=== PATIENT | male | born 1990 | race Two or more races ===

== ENCOUNTER → 2025-11-12 | Emergency (ER) | payer OTHER ==
[~2025-11-12] VITALS: Ht 172.7 cm; Wt 90.7 kg
[~2025-11-12] MED LIST: 0.9 % SODIUM CHLORIDE 1,000 ML IV STA; ABILIFY2 MG; ADDERALL 15 MG15 MG; CLONAZEPAM1 M1; FAMOTIDINE/PF 20 MG/2 ML VIAL IV STA; FAMOTIDINE/PF 20 MG/2 ML VIAL ONE; SERTRALINE20 MG/1 ML; TRICOR48 MG
[2025-11-12 19:29] LABS: BASO % 0.3 % (0.1-1.2); EOS # 0.02 (0.04-0.54); EOS % 0.2 % (0.7-7.0); LYMPH # 1.19 (1.18-3.74); LYMPH % 11.7 % (19.3-53.1); MEAN PLATELET VOLUME 8.60 fl (9.4-12.4); MONO # 1.03 (0.24-0.82); MONO % 10.1 % (4.7-12.5); NEUT # 7.83 (1.56-6.13); NEUT % 77.1 % (34.0-71.1); RED CELL DISTRIBUTION WIDTH 15.3 % (11.6-14.4)
[2025-11-12 20:26] LABS: INR 1.04
[2025-11-12 20:31] LABS: ALT/SGPT 72.0 U/L (12-78); AST/SGOT 55.0 U/L (15-37); BILIRUBIN TOTAL 0.5 mg/dL (0.3-1.2); BUN CREA RATIO 13.0 (7.0-25.0); CREATININE SERUM 1.29 mg/dL (0.70-1.30); GFR 64.55; GLOBULINA 3.2 G/DL (2.4-3.5); GLUCOSE FASTING 112.0 mg/dL (65-100); OSMOLALITY SERUM 278.0 MOSM/KG (275-295)
[2025-11-13] VITALS: BP 164/85; O2SAT 97
[2025-11-13 00:21] LABS: URINE APPEARANCE Clear; URINE BILIRRUBIN Negative (NEGATIVE); URINE BLOOD Negative; URINE COLOR Dark Yellow; URINE GLUCOSE Negative (NEGATIVE); URINE KETONE Negative (NEGATIVE); URINE LEUKOCYTE Negative; URINE NITRATE Negative; URINE PROTEIN Negative (NEGATIVE); URINE UROBILINOGEN 0.2 E.U./dl
[2025-11-13 00:26] LABS: URINE BACTERIA 4.5 uL (0.0-1933); URINE EPITHELIAL CELLS 2.9 uL (0.0-38.8); URINE WBC 4.4 uL (0.0-23.2)
[2025-11-13 00:28] LABS: URINE CAST 0.42 uL (0.0-1.40); URINE RBC 1.8 uL (0.0-20.8)
[2025-11-13 00:29] LABS: COCAINE NEGATIVE (NEGATIVE); METHADONE NEGATIVE (NEGATIVE); OPIATES NEGATIVE (NEGATIVE); THC ( Cannabinoids) POSITIVE (NEGATIVE)
== END | disposition home or self-care (01) ==
LOC: ER 17:39
PROVIDERS: Physician Assistant Medical
DX: F19.929 Other psychoactive substance use, unspecified with intoxication, unspecified (principal); F41.8 Other specified anxiety disorders; F90.8 Attention-deficit hyperactivity disorder, other type; Z88.6 Allergy status to analgesic agent